=== PATIENT | female | born 2000 | race Two or more races ===

== ENCOUNTER 2023-03-23 23:35 | Inpatient (IN) | payer OTHER ==
[2023-03-24] MEDS ORDERED: AMPICILLIN - 2 GM in SODIUM CHLORIDE 100 ML IVPB ONE
[2023-03-24] MEDS ORDERED: ELECTROLYTE-148 SOLN 500 ML IV ONE
[2023-03-24] MEDS ORDERED: ELECTROLYTE-148 SOLN 1,000 ML IV SCH ×2 (00:30→01:30)
[2023-03-24 00:39] LABS: BASO % 0.1 % (0-2.0); EOS % 0.1 % (0-4.5); HEMATOCRIT 35.8 % (32.4-45.2); HEMOGLOBIN 11.6 GM/dL (10.7-15.3); LYMPH % 8.6 % (8-40); MCH 25.4 pg (25.7-33.7); MCHC 32.4 g/dl (32.0-36.0); MEAN CELL VOLUME 78.5 fl (80-96); MEAN PLT VOLUME 9.3 fl (7.5-11.1); MONO % 3.9 % (3.8-10.2); NEUT % 87.3 % (42.8-82.8); PLATELET COUNT 321 10^3/uL (134-434); RBC 4.56 M/mm3 (3.60-5.2); RDW 15.9 % (11.6-15.6); WHITE BLOOD COUNT 15.2 K/mm3 (4.0-10.0)
[2023-03-24 00:43] VITALS: BMI 28.5
[2023-03-24 00:48] LABS: INR 0.93 (0.83-1.09); PROTHROMBIN TIME (PATIENT) 10.8 SEC (9.7-13.0)
[2023-03-24 00:50] LABS: ACTIVATED PTT 26.6 SECONDS (25.2-36.5)
[2023-03-24 01:10] LABS: POTASSIUM 4.4 mmol/L (3.5-5.1)
[2023-03-24 01:12] LABS: BLOOD UREA NITROGEN 7.9 mg/dL (7-18); CALCIUM 9.5 mg/dL (8.5-10.1)
[2023-03-24 01:16] LABS: CREATININE 0.8 mg/dL (0.55-1.3)
[2023-03-24] MEDS ORDERED: LIDOCAINE HCL 1% PRESERVATIVE FREE - 30ML VIAL ONE (01:19)
[2023-03-24] MEDS ORDERED: OXYTOCIN 20 UNITS in 0.9% NS 20 UNIT/1,000 ML INFUS.BAG IV ONE (01:19)
[2023-03-24] MEDS ORDERED: WITCH HAZEL 50% (TUCKS) 40 PAD/JAR PAD TP PRN (01:24)
[2023-03-24] MEDS ORDERED: BENZOCAINE 28 GM HEMORRHOIDAL OINTMENT TP PRN (01:24)
[2023-03-24] MEDS ORDERED: BENZOCAINE 20% 57 GM BOTTLE TP PRN (01:24)
[2023-03-24] MEDS ORDERED: ACETAMINOPHEN 325 MG TABLET (FP) PO PRN (01:24)
[2023-03-24] MEDS ORDERED: BISACODYL 10 MG SUPP.RECT RC PRN (01:24)
[2023-03-24] MEDS ORDERED: OXYTOCIN 20 UNITS in 0.9% NS 20 UNIT/1,000 ML INFUS.BAG IV SCH (01:30)
[2023-03-24 02:05] VITALS: RESP 18
[2023-03-24] MEDS: IBUPROFEN 600 MG TABLET (FP) PO PRN ×3 (03:08→19:50)
[2023-03-24] MEDS ORDERED: AMPICILLIN - 1 GM in SODIUM CHLORIDE 100 ML IVPB SCH (04:00)
[2023-03-24] MEDS ORDERED: DIPHTH,PERTUSS(ACELL),TET 0.5 ML DISP.SYRIN IM ONE (10:00)
[2023-03-25 08:12] LABS: BASO % 0.7 % (0-2.0); HEMATOCRIT 27.2 % (32.4-45.2); HEMOGLOBIN 8.9 GM/dL (10.7-15.3); MCH 25.7 pg (25.7-33.7); MCHC 32.9 g/dl (32.0-36.0); MEAN CELL VOLUME 78.1 fl (80-96); MEAN PLT VOLUME 8.9 fl (7.5-11.1); MONO % 6.3 % (3.8-10.2); PLATELET COUNT 263 10^3/uL (134-434); RBC 3.48 M/mm3 (3.60-5.2); RDW 15.7 % (11.6-15.6); WHITE BLOOD COUNT 10.7 K/mm3 (4.0-10.0)
[2023-03-25] MEDS: IBUPROFEN 600 MG TABLET (FP) PO PRN ×2 (09:59→21:11)
[2023-03-25] MEDS ORDERED: SENNOSIDES/DOCUSATE COMBO (SENNA PLUS) TABLET (UD) PO PRN (22:00)
[2023-03-26 08:23] VITALS: BP 101/58; PULSE 79; TEMP 98.5
== END 2023-03-26 11:39 | disposition home or self-care (01) | DRG 560 ==
LOC: JDEL 23:35 → JLDR 23:55 → J3W 03-24 02:39
PROVIDERS: ADMIT Student in an Organized Health Care Education/Training Program; ATTEND Student in an Organized Health Care Education/Training Program
PROC: 10E0XZZ Delivery of Products of Conception, External Approach (ICD-10-PCS; principal; 2023-03-24)
PROC: 0HQ9XZZ Repair Perineum Skin, External Approach (ICD-10-PCS; 2023-03-24)
DX: O99.824 Streptococcus B carrier state complicating childbirth (principal); O70.0 First degree perineal laceration during delivery; Z3A.38 38 weeks gestation of pregnancy; Z37.0 Single live birth
CPT/HCPCS: 36415; 59025; 80048; 85025; 85610; 85730; 86780; 86850; 86900; 86901; 90715